=== PATIENT | female | born 1955 | race Caucasian/White ===

== ENCOUNTER 2019-01-17 07:01 | Emergency (ER) | payer BC ==
--- NOTE | 2019-01-17 07:11 | ERPHSYRPT ---
- History of Present Illness Time Seen by Provider: 01/17/19 07:11 Source: patient Exam Limitations: no limitations Physician History: 63 y/o white female rolled over in bed this am. no trauma. now with lower back pain. similar episode 30 years ago. Timing/Duration: today Method of Injury: twisted, other (rolled in bed) Quality: sharp, stabbing Back Pain Location: lumbar spine Severity of Pain-Max: moderate Severity of Pain-Current: moderate Associated Symptoms: lower back pain, muscle spasms, No loss of bowel control, No nausea, No vomiting, No numbness in legs/feet, No weakness, No tingling in legs/feet Allergies/Adverse Reactions: Sulfa (Sulfonamide Antibiotics) [Sulfa(Sulfonamide Antibiotics)] Allergy (Severe , Verified 01/17/19 07:28) Swelling acetaminophen [From Darvocet-N 100] Allergy (Mild, Verified 01/17/19 07:28) PT "TALKS OUT OF MY HEAD" propoxyphene HCl [From Darvon] Allergy (Mild, Verified 01/17/19 07:28) PT "TALKS OUT OF MY HEAD" propoxyphene napsylate [From Darvocet-N 100] Allergy (Mild, Verified 01/17/19 07 :28) PT "TALKS OUT OF MY HEAD" latex Allergy (Verified 01/17/19 07:28) hydrocodone bitartrate [From Vicodin] Adverse Reaction (Mild, Verified 01/17/19 07:28) Nausea and Vomiting Home Medications: Aspirin [Aspirin EC] 81 mg PO DAILY 12/05/15 [History] Atorvastatin Calcium [Lipitor] 80 mg PO DAILY 12/05/15 [History] Carvedilol 12.5 mg [Coreg 12.5 mg] 1.5 tab PO BID 12/05/15 [History] Ropinirole HCl 0.25 mg PO HS 12/05/15 [History] Alprazolam 0.25 mg [xanAX 0.25 MG] 0.25 mg PO TID 04/20/16 [History] Amlodipine Besylate 5 mg [Norvasc 5 mg] 5 mg PO DAILY 04/20/16 [History] Diclofenac Sodium Gel [Voltaren GEL] 4 gm TP QID 04/20/16 [History] Doxazosin Mesylate [Cardura] 1 mg PO DAILY 04/20/16 [History] Escitalopram Oxalate 10 mg [Lexapro 10 MG] 10 mg PO BID 04/20/16 [History] Levothyroxine Sodium 50 Mcg [Synthroid 50 Mcg] 50 mcg PO DAILY 04/20/16 [ History] Losartan Potassium [Cozaar 100Mg Tablet] 100 mg PO DAILY 04/20/16 [History] Naproxen 500 mg PO BIDPRN PRN 04/20/16 [History] Trospium Chloride [Sanctura] 20 mg PO DAILY 04/20/16 [History] Chlorthalidone 25 mg PO DAILY 06/09/16 [History] Omeprazole 20 MG [Prilosec 20 mg] 20 mg PO DAILY 06/09/16 [History] Ondansetron HCl [Zofran] 4 mg PO UD 06/09/16 [History] Tramadol HCl 50 mg [Ultram 50 mg] 50 mg PO Q4-6HPRN PRN 06/09/16 [History] Hx Tetanus, Diphtheria Vaccination/Date Given: Yes Hx Influenza Vaccination/Date Given: No Hx Pneumococcal Vaccination/Date Given: No - Review of Systems Constitutional: No Symptoms Eyes: No Symptoms Ears, Nose, & Throat: No Symptoms Respiratory: No Symptoms Cardiac: No Symptoms Abdominal/Gastrointestinal: No Symptoms Genitourinary Symptoms: No Symptoms Musculoskeletal: Back Pain Skin: No Symptoms Neurological: No Symptoms Psychological: No Symptoms Endocrine: No Symptoms Hematologic/Lymphatic: No Symptoms Immunological/Allergic: No Symptoms All Other Systems: Reviewed and Negative - Past Medical History Pertinent Past Medical History: Yes Neurological History: TIA ENT History: No Pertinent History Cardiac History: Hypertension Respiratory History: COPD Endocrine Medical History: Hypothyroidism Musculoskeletal History: Arthritis, Osteoarthritis, Rheumatoid Arthritis, Other GI Medical History: Esophageal Disorder, GERD, Hepatitis, Other History: Other Psycho-Social History: Anxiety, Depression Female Reproductive Disorders: No Pertinent History, Endometriosis, Pelvic Inflammatory Disease Other Medical History: CHEST PAIN - Past Surgical History Past Surgical History: Yes Neuro Surgical History: No Pertinent History Cardiac: Cardiac Catheterization Respiratory: No Pertinent History Gastrointestinal: Appendectomy, Other Genitourinary: No Pertinent History Musculoskeletal: Other Female Surgical History: Hysterectomy, Lumpectomy Other Surgical History: Recent EGD NECK SURGERY - Social History Smoking Status: Former smoker Exposure to second hand smoke: No Drug Use: none Patient Lives Alone: No - Nursing Vital Signs Nursing Vital Signs: Initial Vital Signs Temperature 97.6 F 01/17/19 07:09 Pulse Rate 73 01/17/19 07:09 Respiratory Rate 24 01/17/19 07:09 Blood Pressure 142/85 01/17/19 07:09 O2 Sat by Pulse Oximetry 95 01/17/19 07:09 Pain Scale Pain Intensity 9 - Physical Exam General Appearance: mild distress, alert, anxiety Eye Exam: PERRL/EOMI, eyes nml inspection Ears, Nose, Throat Exam: normal ENT inspection, moist mucous membranes Neck Exam: normal inspection, non-tender, supple, full range of motion Respiratory Exam: airway intact, No chest tenderness, No respiratory distress Gastrointestinal Exam: No tenderness Pelvic Exam: not done Rectal Exam: not done Back Exam: normal inspection, normal range of motion, No CVA tenderness, No vertebral tenderness Extremity Exam: normal inspection, normal range of motion, pelvis stable Neurologic Exam: alert, oriented x 3, cooperative, 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 Skin Exam: normal color, warm, dry Lymphatic Exam: No adenopathy SpO2 Interpretation: normal - Course Nursing assessment & vital signs reviewed: Yes Ordered Tests: Medication Summary Discontinued Medications Generic Name Dose Route Start Last Admin Trade Name Freq PRN Reason Stop Dose Admin Hydromorphone HCl 1 mg 01/17/19 07:33 Hydromorphone 1 Mg/Ml Ampule IM 01/17/19 07:34 STAT ONE Methylprednisolone Sodium Succinate 125 mg 01/17/19 07:34 Solu-Medrol 125 Mg IM 01/17/19 07:35 STAT ONE Promethazine HCl 12.5 mg 01/17/19 07:34 Phenergan 25 Mg Inj IM 01/17/19 07:35 STAT ONE - Progress Progress: unchanged Counseled pt/family regarding: diagnosis, need for follow-up - Departure Departure Disposition: Home Clinical Impression: Strain of lumbar paraspinous muscle Condition: Stable Critical Care Time: No Referrals: JEN MOLINA [Primary Care Provider] - Additional Instructions: take medications as prescribed. follow up with primary doctor for further management Prescriptions: Oxycodone HCl/Acetaminophen [Percocet 5-325 mg Tablet] 1 each PO Q8H PRN PRN #6 tablet MDD 3 PRN Reason: Pain Cyclobenzaprine HCl 10 mg [Cyclobenzaprine 10 MG] 10 mg PO TID #10 tablet Prednisone 10 mg [Deltasone 10 mg] 10 mg PO BID #6 tablet
[2019-01-17] MEDS ORDERED: Hydromorphone 1 mg/ml Ampule IM ONE (07:33)
[2019-01-17] MEDS ORDERED: Phenergan 25 MG INJ IM ONE (07:34)
[2019-01-17] MEDS ORDERED: solu-MEDROL 125 MG IM ONE (07:34)
[2019-01-17] MEDS ORDERED: Phenergan 25 MG INJ ONE (07:40)
[2019-01-17] MEDS ORDERED: Hydromorphone 1 mg/ml Ampule ONE (07:40)
[2019-01-17] MEDS ORDERED: solu-MEDROL 125 MG ONE (07:41)
[2019-01-17 08:08] VITALS: BP 151/90; PULSE 77; O2SAT 96
== END 2019-01-17 08:12 | disposition home or self-care (01) ==
LOC: ED 07:01
DX: S39.012A Strain of muscle, fascia and tendon of lower back, initial encounter (principal); M62.830 Muscle spasm of back; Z79.899 Other long term (current) drug therapy; M19.90 Unspecified osteoarthritis, unspecified site; F41.8 Other specified anxiety disorders; K75.9 Inflammatory liver disease, unspecified; I10 Essential (primary) hypertension; J44.9 Chronic obstructive pulmonary disease, unspecified; E03.9 Hypothyroidism, unspecified; M06.9 Rheumatoid arthritis, unspecified
CPT/HCPCS: 96372; 99284; J1170; J2550; J2930

== ENCOUNTER 2019-05-01 08:10 | Day surgery (SDC) | payer BC ==
--- NOTE | 2019-05-01 07:52 | HP ---
DATE OF SURGERY: 05/01/2019 ADMISSION DIAGNOSIS: Dysphagia. ANTICIPATED PROCEDURE: EGD possible dilatation. HISTORY OF PRESENT ILLNESS: The patient has had cardiac clearance, pulmonary clearance. PAST MEDICAL HISTORY: ALLERGIES: VICODIN. SULFA. ACETAMINOPHEN. PROPOXYPHENE. LATEX. MEDICATIONS: Multiple. PAST SURGICAL HISTORY: Multiple. SOCIAL HISTORY: Negative. FAMILY HISTORY: Negative. REVIEW OF SYSTEMS: Chronic obstructive pulmonary disease. Brain aneurysm. Gastroparesis. Thyroid and carotid artery issues. Stroke. PHYSICAL EXAMINATION: VITAL SIGNS: Normal. CHEST: Clear. COR: Regular. IMPRESSION: Dysphagia. PLAN: EGD.
[~2019-05-01 08:10] MED LIST: Lactated Ringers 1,000 ML IV ONE; Lactated Ringers 1,000 ML IV SCH
[2019-05-01] MEDS ORDERED: VERSED 5 MG/5 ML IV ONE (08:11)
[2019-05-01] MEDS ORDERED: DEMEROL 50 MG IJ ONE (08:11)
--- NOTE | 2019-05-01 10:52 | OP ---
SURGERY DATE/TIME: 05/01/2019 0955 PREOPERATIVE DIAGNOSIS: Sensation of hanging up in the esophagus, upper abdominal epigastric pain. 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 2) A 1 inch hiatal hernia. 3) Gastroesophageal reflux disease II/III. 4) Gastroparesis with small amount of residual food bezoar. PROCEDURE: EGD. SURGEON: Elian Larson M.D. ANESTHESIA: IV sedation. COMPLICATIONS: None. CONDITION: Stable. INDICATION: The patient requiring evaluation. DESCRIPTION OF PROCEDURE: Taken to endoscopy. IV sedation titrated 15 minutes monitored, satisfactory. Oximetry over 90 and comfort level satisfactory. Scope introduced. The pharyngoesophageal junction is normal. Esophagus normal down to the hiatal hernia. There was a 1 inch hiatal hernia. There was II-III gastroesophageal reflux disease. The mucosa of the esophagus was normal but there were no contractions other than spasm. There was a small amount of bezoar 2 ounces with food particles. It was felt the pylorus might be a little snug but it was not. The scope went through this readily. Duodenal bulb second portion normal. The scope withdrawn and looped upon itself. A 1 inch hiatal hernia, again noted the bezoar and there was no gastric contractions. Back in the esophagus there was sporadic random esophageal contractions. IMPRESSION: The patient clearly has presbyesophagus. She has a 1 inch hiatal hernia. She has some gastroparesis. We will place her on Reglan to see if this improves.
[2019-05-01 10:57] VITALS: O2SAT 96
[2019-05-01 11:34] VITALS: BP 110/70; PULSE 84
== END 2019-05-01 11:20 | disposition home or self-care (01) ==
LOC: SDC 08:10
PROVIDERS: ATTEND Surgery
DX: K22.8 Other specified diseases of esophagus (principal); K44.9 Diaphragmatic hernia without obstruction or gangrene; K31.84 Gastroparesis; T18.198A Other foreign object in esophagus causing other injury, initial encounter
CPT/HCPCS: J2175; J2250